=== PATIENT | female | born 1980 | race Caucasian/White ===

== ENCOUNTER → 2018-09-04 | Outpatient (CLI) | payer OTHER | LOC: MC.RAD 15:08 | DX: Z12.31 Encounter for screening mammogram for malignant neoplasm of breast (principal) ==

== ENCOUNTER 2020-06-24 08:57 | Outpatient (CLI) | payer BC | END 2020-06-25 | LOC: COL.RAD | DX: R11.2 Nausea with vomiting, unspecified (principal) | CPT/HCPCS: A9541 ==